=== PATIENT | female | born 1930 | race Caucasian/White ===

== ENCOUNTER 2018-05-26 09:22 | Emergency (ER) | payer MEDICARE, OTHER ==
[~2018-05-26] VITALS: Ht 157.5 cm; Wt 54.4 kg
[~2018-05-26 09:22] MED LIST: AMLODIPINE BES2.5 MG ORAL; ASPIR-LOW81 MG ORAL; ATORVASTATIN CA10 MG ORAL; FISH OIL CAP1000 MG ORAL; KEFLEX500 MG ORAL; NAPROXEN250 MG ORAL; TENORMIN25 MG ORAL
[2018-05-26 09:28] VITALS: BP 204/72
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
--- NOTE | 2018-05-26 09:30 | NUR ---
ED Nurse Note: Pt is not on blood thinner.
--- NOTE | 2018-05-26 09:48 | NUR ---
ED Nurse Note: Ice pack given to pt on R knee.
[2018-05-26 09:54] VITALS: BP 198/88
--- NOTE | 2018-05-26 10:07 | NUR ---
ED Nurse Note: X-ray at bedside for imaging.
[2018-05-26 10:22] VITALS: BP 187/63
[2018-05-26] MEDS ORDERED: TYLENOL EXTRA500 MG ORAL (10:42)
[2018-05-26] MEDS ORDERED: WHEELCHAIR1 EACH MC (10:44)
[2018-05-26 10:49] VITALS: BP 187/63
--- NOTE | 2018-05-26 10:50 | NUR ---
ED Nurse Note: Pt is clear to be discharged by ERMD. Discharge paper and prescription given, pt verbalized understanding of discharge instruction. Aox4, VSS. Pt wheeled out to private vehicle accompanied by friends.
--- NOTE | 2018-05-26 10:52 | Diagnostic Imaging Report ---
Indication: Knee pain, status post fall Technique: 3 views of the right knee Comparison: None Findings: There are surgical clips medially. No acute fractures. No dislocations. No suprapatellar effusion. The joint spaces are preserved. There are medial soft tissue calcifications Impression: No acute process
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
== END 2018-05-26 10:50 | disposition home or self-care (01) ==
LOC: EDBD 09:22 → EMR 10:15
DX: S89.91XA Unspecified injury of right lower leg, initial encounter (principal); W01.0XXA Fall on same level from slipping, tripping and stumbling without subsequent striking against object, initial encounter; Y92.9 Unspecified place or not applicable; Z88.8 Allergy status to other drugs, medicaments and biological substances; I10 Essential (primary) hypertension; I25.2 Old myocardial infarction
CPT/HCPCS: 99283

== ENCOUNTER 2019-09-10 10:32 | Emergency (ER) | payer MEDICARE, OTHER ==
[~2019-09-10] VITALS: Ht 157.5 cm; Wt 68.0 kg
[~2019-09-10 10:32] MED LIST changes: +TYLENOL EXTRA500 MG ORAL; +WHEELCHAIR1 EACH MC
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
--- NOTE | 2019-09-10 10:46 | NUR ---
ED Nurse Note: ERMD at pt's room.
[2019-09-10] MEDS ORDERED: CATAPRES TTS-1 PATCH TDERMAL (10:48)
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
[2019-09-10 10:55] VITALS: BP 154/89
--- NOTE | 2019-09-10 11:29 | NUR ---
ED Nurse Note: X ray at bed side
--- NOTE | 2019-09-10 11:31 | NUR ---
ED Nurse Note: X-ray done.
[2019-09-10] MEDS ORDERED: TYLENOL EXTRA500 MG ORAL (12:26)
[2019-09-10] MEDS ORDERED: NORCO 5-325 TA1 EAC1 ORAL (12:32)
--- NOTE | 2019-09-10 12:33 | Diagnostic Imaging Report ---
Clinical Indication:Wrist pain, trauma Technique: 3 views of the left wrist Comparison: None Findings: There are severe degenerative changes of the first and second carpometacarpal joint and the lateral intercarpal joint, with extensive proliferative change, degenerative remodeling of the trapezoid, trapezium, and scaphoid. Degenerative subchondral cysts are also seen in the capitate and the lunate. No definite acute fractures. No dislocations. Impression: Severe degenerative arthropathy as described No definite acute bony trauma, although distortion of the bony anatomy from severe arthropathy makes fracture difficult to completely confidently exclude.
--- NOTE | 2019-09-10 12:50 | Diagnostic Imaging Report ---
Indication: Pain, thumb injury Technique: 3 views left hand Comparison: none Findings: There is extensive erosive arthropathy, worst in the second and third proximal interphalangeal joints, but also involving the distal interphalangeal joints, fourth and fifth proximal interphalangeal joints, and the first interphalangeal joint. There is also extensive arthropathy involving the lateral intercarpal joint and the first and second carpometacarpal joints. There is also some degenerative change of the articular surfaces of the capitate and lunate. 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 No definite acute fractures. No dislocations. No radiopaque foreign body Impression: Extensive arthropathy. No definite acute fracture, although difficult to confidently exclude given the extent of the underlying abnormality
[2019-09-10 13:00] VITALS: BP 150/80
--- NOTE | 2019-09-10 13:00 | NUR ---
ER DISCHARGE NOTE: Pt is cleared to be discharged per ERMD, pt is aox4, on room air, with stable vital signs. pt was given dc and prescription instructions, pt was able to verbalize understanding, pt id band removed. pt is able to ambulate with steady gait. pt took all belongings.
== END 2019-09-10 13:00 | disposition home or self-care (01) ==
LOC: EMR 11:48
DX: M25.542 Pain in joints of left hand (principal); M25.532 Pain in left wrist; M19.032 Primary osteoarthritis, left wrist; M19.042 Primary osteoarthritis, left hand; I10 Essential (primary) hypertension; I25.2 Old myocardial infarction
CPT/HCPCS: 29125; 99284

== ENCOUNTER 2019-09-23 19:13 | Emergency (ER) | payer MEDICARE, OTHER ==
[~2019-09-23] VITALS: Ht 162.6 cm; Wt 49.9 kg
[~2019-09-23 19:13] MED LIST changes: +CATAPRES TTS-1 PATCH TDERMAL; +NORCO 5-325 TA1 EAC1 ORAL
[2019-09-23 19:25] VITALS: BP 129/74
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
--- NOTE | 2019-09-23 19:39 | Emergency Room Report ---
History of Present Illness General Chief Complaint: Vomiting Source: Patient Present Illness HPI Patient is an 89-year-old female past medical history of hypertension and hyperlipidemia who presents to the ER complaining of vomiting since yesterday. Patient states that her neighbor gave her some food which she believes caused her to have nausea and vomiting. She denies any blood or bilious vomitus. She complains of occasional abdominal cramping. She denies any fever or chills. She denies any chest pain or shortness of breath. She denies any constipation or diarrhea. She denies any dysuria or hematuria. Patient denies any history of abdominal surgery in the past Allergies: Coded Allergies: ERYTHROMYCIN BASE (Verified Allergy, Mild, rash, 09/10/19) COVID-19 Screening Contact w/high risk pt: No Recent Travel to affected area: No Experienced COVID-19 symptoms?: No Patient History Last Menstrual Period: na Now: No : 7 Para: 2 Reviewed Nursing Documentation: PMH: Agreed; PSxH: Agreed Nursing Documentation-PMH Hx Cardiac Problems: No - HX OF MS Hx Hypertension: Yes Review of Systems All Other Systems: negative except mentioned in HPI Physical Exam Vital Signs Date Time Temp Pulse Resp B/P (MAP) Pulse Ox O2 Delivery O2 Flow Rate FiO2 09/23/19 19:18 97.9 114 16 118/72 (87) 96 Room Air Sp02 EP Interpretation: reviewed, normal General Appearance: no apparent distress, alert, GCS 15, non-toxic Head: normocephalic, atraumatic Eyes: bilateral eye normal inspection, bilateral eye PERRL ENT: hearing grossly normal, normal pharynx, no angioedema, normal voice, dry mucus membranes Neck: full range of motion, supple/symm/no masses Respiratory: chest non-tender, lungs clear, normal breath sounds, speaking full sentences Cardiovascular #1: normal inspection, normal peripheral pulses, tachycardia Gastrointestinal: normal bowel sounds, soft, non-distended, no guarding, no rebound, other - mild RLQ pain Rectal: deferred Genitourinary: normal inspection, no CVA tenderness Musculoskeletal: back normal, normal range of motion, no calf tenderness, non- tender Neurologic: alert, motor strength/tone normal, oriented x3, sensory intact, responsive, speech normal Psychiatric: judgement/insight normal, memory normal, mood/affect normal, no suicidal/homicidal ideation Skin: no rash Lymphatic: no adenopathy Medical Decision Making Diagnostic Impression: Primary Impression: Diverticulosis Additional Impressions: UTI (urinary tract infection) Splenic lesion ER Course Patient CT demonstrates diverticulosis without evidence for diverticulitis. Patient has a splenic lesion which can be followed up on an outpatient basis. I have informed the patient of this and given her copy of her CT result to follow-up with her primary care physician. Patient has a UTI. I have started her on Keflex and send her urine for culture. Patient given Zofran and IV fluids. On reevaluation patient is tolerating p.o. Her vital signs are stable. Labs demonstrate no other acute significant findings. After discussing risks and benefits of further diagnostics, treatment plans, as well as indications for and risks of admission, the patient is agreeable to being discharged home. I have explained that their evaluation and treatment in the emergency department today is an important step towards them achieving better health but that their evaluation today is not intended to replace further evaluation and treatment by a physician in their local clinic. I have explained that while the current findings suggest no immediate life threatening emergency they will require further evaluation and treatment by a physician of their choice in their area. They understand that it will be necessary for them to review the final reports of their ED visit with their clinic physician. We have reviewed indications for return to the Emergency Department. I have explained that additional time may need to pass and/or additional testing as an outpatient may be necessary before a definitive diagnosis can be made. They tell me they are willing to follow up as instructed within the timeframe I recommend. They appear to understand what we discussed. Additionally they understand that if they are unable to be seen by an outpatient physician they are welcome, and in fact should, return to the Emergency Department for a repeat evaluation. The patient is stable at time of discharge. Laboratory Tests Test 09/23/19 19:30 09/23/19 20:30 White Blood Count 7.3 K/UL (4.8-10.8) Red Blood Count 4.35 M/UL (4.20-5.40) Hemoglobin 12.5 G/DL (12.0-16.0) Hematocrit 40.4 % (37.0-47.0) Mean Corpuscular Volume 93 FL (80-99) Mean Corpuscular Hemoglobin 28.7 PG (27.0-31.0) Mean Corpuscular Hemoglobin Concent 30.8 G/DL (32.0-36.0) L Red Cell Distribution Width 13.5 % (11.6-14.8) Platelet Count 397 K/UL (150-450) Mean Platelet Volume 6.4 FL (6.5-10.1) L Neutrophils (%) (Auto) 69.5 % (45.0-75.0) Lymphocytes (%) (Auto) 22.2 % (20.0-45.0) Monocytes (%) (Auto) 6.8 % (1.0-10.0) Eosinophils (%) (Auto) 0.9 % (0.0-3.0) Basophils (%) (Auto) 0.7 % (0.0-2.0) Prothrombin Time 10.3 SEC (9.30-11.50) Prothrombin Time INR 1.0 (0.9-1.1) Activated Partial Thromboplast Time 25 SEC (23-33) Sodium Level 137 MMOL/L (136-145) Potassium Level 4.2 MMOL/L (3.5-5.1) Chloride Level 99 MMOL/L (98-107) Carbon Dioxide Level 28 MMOL/L (21-32) Anion Gap 10 mmol/L (5-15) Blood Urea Nitrogen 28 mg/dL (7-18) H Creatinine 1.0 MG/DL (0.55-1.30) Estimated Glomerular Filtration Rate 52.2 mL/min (>60) Glucose Level 130 MG/DL (74-106) H Calcium Level 9.7 MG/DL (8.5-10.1) Magnesium Level 2.1 MG/DL (1.8-2.4) Total Bilirubin 0.4 MG/DL (0.2-1.0) Aspartate Amino Transferase (AST) 23 U/L (15-37) Alanine Aminotransferase (ALT) 22 U/L (12-78) Alkaline Phosphatase 52 U/L (46-116) Total Protein 7.7 G/DL (6.4-8.2) Albumin 3.5 G/DL (3.4-5.0) Globulin 4.2 g/dL Albumin/Globulin Ratio 0.8 (1.0-2.7) L Lipase 203 U/L (73-393) Urine Color Yellow Urine Appearance Slightly cloudy Urine pH 6 (4.5-8.0) Urine Specific [place] 1.015 (1.005-1.035) Urine Protein 1+ (NEGATIVE) H Urine Glucose (UA) Negative (NEGATIVE) Urine Ketones 1+ (NEGATIVE) H Urine Blood 1+ (NEGATIVE) H Urine Nitrite Negative (NEGATIVE) Urine Bilirubin Negative (NEGATIVE) Urine Urobilinogen Normal MG/DL (0.0-1.0) Urine Leukocyte Esterase 3+ (NEGATIVE) H Urine RBC 2-4 /HPF (0 - 2) H Urine WBC 10-15 /HPF (0 - 2) H Urine Squamous Epithelial Cells Moderate /LPF (NONE/OCC) H Urine Bacteria Many /HPF (NONE) H Last Vital Signs Date Time Temp Pulse Resp B/P (MAP) Pulse Ox O2 Delivery O2 Flow Rate FiO2 09/23/19 19:18 97.9 114 16 118/72 (87) 96 Room Air Disposition: HOME, SELF-CARE Condition: Stable - improved Scripts Cephalexin* (KEFLEX*) 500 Mg Tablet 500 MG ORAL EVERY 8 HOURS for 5 Days, CAP Prov: Ava Sellers M.D. 09/23/19 Ondansetron* (ZOFRAN*) 4 Mg Tablet 4 MG ORAL Q6H PRN for Nausea & Vomiting, #14 TAB Prov: Ava Sellers M.D. 09/23/19 Referrals: NON PHYSICIAN (PCP) Additional Instructions: The patient was provided with discharge instructions, notified to follow-up with a primary care doctor and or specialist in the next 24-48 hours, and to return to the ED if they have worsening of their symptoms. Please note that this report is being documented using ShoutOut technology. This can lead to erroneous entry secondary to incorrect interpretation by the dictating instrument. Ava Sellers M.D. September 23, 2019 19:39
--- NOTE | 2019-09-23 19:55 | NUR ---
ED Nurse Note: Pt taken to CT.
[2019-09-23 20:05] LABS: ANION GAP 10 mmol/L (5-15); BLOOD UREA NITROGEN 28 mg/dL (7-18); CALCIUM 9.7 MG/DL (8.5-10.1); CARBON DIOXIDE 28 MMOL/L (21-32); CHLORIDE 99 MMOL/L (98-107); POTASSIUM 4.2 MMOL/L (3.5-5.1); SODIUM 137 MMOL/L (136-145)
[2019-09-23 20:07] LABS: BASOPHILS % (AUTO) 0.7 % (0.0-2.0); EOSINOPHILS % (AUTO) 0.9 % (0.0-3.0); HEMATOCRIT 40.4 % (37.0-47.0); HEMOGLOBIN 12.5 G/DL (12.0-16.0); LYMPHOCYTES % (AUTO) 22.2 % (20.0-45.0); MEAN CORPUSCULAR VOLUME 93 FL (80-99); MONOCYTES % (AUTO) 6.8 % (1.0-10.0); NEUTROPHILS % (AUTO) 69.5 % (45.0-75.0); PLATELET COUNT 397 K/UL (150-450); RED BLOOD COUNT 4.35 M/UL (4.20-5.40); RED CELL DISTRIBUTION WIDTH 13.5 % (11.6-14.8); WHITE BLOOD COUNT 7.3 K/UL (4.8-10.8)
[2019-09-23 20:11] LABS: ALANINE AMINOTRANSFERASE 22 U/L (12-78); ALBUMIN 3.5 G/DL (3.4-5.0); ALBUMIN/GLOBULIN RATIO 0.8 (1.0-2.7); ALKALINE PHOSPHATASE 52 U/L (46-116); ASPARTATE AMINO TRANSFERASE 23 U/L (15-37); BILIRUBIN,TOTAL 0.4 MG/DL (0.2-1.0)
--- NOTE | 2019-09-23 20:15 | NUR ---
ED Nurse Note: Pt returned from CT stable.
--- NOTE | 2019-09-23 20:34 | Diagnostic Imaging Report ---
EXAM: CT Abdomen and Pelvis Without Intravenous Contrast CLINICAL HISTORY: ABD PAIN TECHNIQUE: Axial computed tomography images of the abdomen and pelvis without intravenous contrast. CTDI is 3.4 mGy and DLP is 160 mGy-cm. One or more of the following dose reduction techniques were used: automated exposure control, adjustment of the mA and/or kV according to patient size, use of iterative reconstruction technique. Coronal and sagittal reformatted images were created and reviewed. COMPARISON: No relevant prior studies available. FINDINGS: Lung bases: Areas of probable mild linear atelectasis versus scarring at the lung bases. Mediastinum: Small hiatal hernia. ABDOMEN: Liver: The liver is grossly unremarkable for a noncontrast CT. Gallbladder and bile ducts: The gallbladder is grossly unremarkable for a noncontrast CT. No calcified stones. No ductal dilation. Pancreas: The pancreas is grossly unremarkable for a noncontrast CT. No ductal dilation. Spleen: Nonspecific partially calcified exophytic lesion in the spleen measuring approximately 12 mm which is not clearly represent a cyst. Follow-up nonemergent contrast enhanced CT and/or MRI is recommended for further evaluation if the patient can tolerate contrast and/or MRI. Adrenals: The adrenals are grossly unremarkable for a noncontrast CT. Kidneys and ureters: Nonspecific low-density lesions in the kidneys which are too small to adequately characterize. Evaluation is also limited without IV contrast. No obstructing stones. Stomach and bowel: Evaluation of the stomach is limited secondary to poor distention. Some wall thickening of the stomach cannot be excluded. Diverticulosis without definite evidence for diverticulitis. Evaluation of the bowel is limited secondary to no IV or by mouth contrast and secondary to minimal intraperitoneal fat. No evidence for significant bowel loop dilation to suggest an obstructive process. PELVIS: Appendix: The appendix is not clearly identified. Bladder: The bladder is grossly unremarkable. No stones. Reproductive: The uterus is grossly unremarkable. ABDOMEN and PELVIS: Intraperitoneal space: No free intraperitoneal fluid or free intraperitoneal gas. Bones/joints: Degenerative changes of the hips. Degenerative changes of the thoracolumbar spine. Mild vertebral body compression fractures at L4 and L2. No definite CT evidence for surrounding edema to suggest an acute process. Grade 1-2 anterolisthesis of L5 on S1. 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 Bilateral neural foraminal narrowing is suspected at this level. No dislocation. Soft tissues: Unremarkable. Vasculature: Vascular atherosclerotic calcifications. No abdominal aortic aneurysm. Lymph nodes: Unremarkable. No enlarged lymph nodes. IMPRESSION: 1. Evaluation of the stomach is limited secondary to poor distention. Some wall thickening of the stomach cannot be excluded. 2. Nonspecific partially calcified exophytic lesion in the spleen measuring approximately 12 mm which is not clearly represent a cyst. Follow-up nonemergent contrast enhanced CT and/or MRI is recommended for further evaluation if the patient can tolerate contrast and/or MRI. 3. Small hiatal hernia. 4. Diverticulosis without definite evidence for diverticulitis.
--- NOTE | 2019-09-23 20:35 | NUR ---
ED Nurse Note: Urine collected and sent to lab.
--- NOTE | 2019-09-23 20:40 | NUR ---
ED Nurse Note: Pt given apple juice, tolerated well. ERMD aware.
[2019-09-23 20:46] LABS: APPEARANCE,URINE SLIGHTLY CLOUDY; BILIRUBIN, URINE NEGATIVE (NEGATIVE); GLUCOSE, URINE (UA) NEGATIVE (NEGATIVE); KETONES,URINE 1+ (NEGATIVE); LEUKOCYTE ESTERASE ,URINE 3+ (NEGATIVE); NITRITE,URINE NEGATIVE (NEGATIVE); PH,URINE 6 (4.5-8.0); PROTEIN,URINE 1+ (NEGATIVE); UROBILINOGEN,URINE NORMAL MG/DL (0.0-1.0)
[2019-09-23 20:53] LABS: COLOR,URINE YELLOW
[2019-09-23] MEDS ORDERED: CEPHALEXIN500 M1 ORAL (20:59)
[2019-09-23] MEDS ORDERED: ZOFRAN4 M3 ORAL (20:59)
[2019-09-23] MEDS ORDERED: Cephalexin 500mg cap ORAL ONE (21:00)
[2019-09-23 21:30] VITALS: BP 118/70
--- NOTE | 2019-09-23 21:30 | NUR ---
ER DISCHARGE NOTE: Patient is cleared to be discharged per ERMD, pt is aox4, on room air, with stable vital signs. pt was given dc and prescription instructions, pt was able to verbalize understanding, pt id band and iv site removed without complications. pt is able to ambulate with steady gait. pt took all belongings.
== END 2019-09-23 21:30 | disposition home or self-care (01) ==
LOC: EMR 19:30
DX: K57.90 Diverticulosis of intestine, part unspecified, without perforation or abscess without bleeding (principal); N39.0 Urinary tract infection, site not specified; D73.89 Other diseases of spleen; I25.2 Old myocardial infarction; I10 Essential (primary) hypertension; Z88.8 Allergy status to other drugs, medicaments and biological substances; E78.5 Hyperlipidemia, unspecified
CPT/HCPCS: 36415; 74176; 80053; 81003; 83690; 83735; 85025; 85610; 85730; 87086; 87181; 96361; 96374; 99284; J2405; J7030